=== PATIENT | male | born 1960 | race Caucasian/White ===

== ENCOUNTER 2021-03-27 21:08 | Observation (INO) | payer SELFPAY ==
[2021-03-27 21:01] VITALS: BP 155/90; PULSE 88; RESP 18; TEMP 36.7; O2SAT 94; BMI 38.0
--- NOTE | 2021-03-27 21:03 | CTR_ITS ---
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 C/O headache. TECHNIQUE: Imaging protocol: Computed tomography angiography of the head with contrast. Exam focused on the arteries. 3D rendering (Not supervised by radiologist): MIP and/or 3D reconstructed images were created by the technologist. Radiation optimization: All CT scans at this facility use at least one of these dose optimization techniques: automated exposure control; mA and/or kV adjustment per patient size (includes targeted exams where dose is matched to clinical indication); or iterative reconstruction. Contrast material: OMNI 350; Contrast volume: 95 ml; Contrast route: INTRAVENOUS (IV); COMPARISON: CT head wo con* [id number] 03/27/2021 9:16 PM RADIATION DOSE METRICS: Total DLP (mGy-cm): 2333.18 FINDINGS: ANTERIOR CIRCULATION: Right internal carotid artery: Unremarkable. Intracranial segment is patent with no significant stenosis. No aneurysm. Right middle cerebral artery: Unremarkable. No occlusion or significant stenosis. No aneurysm. Right anterior cerebral artery: Unremarkable. No occlusion or significant stenosis. No aneurysm. Left internal carotid artery: Unremarkable. Intracranial segment is patent with no significant stenosis. No aneurysm. Left middle cerebral artery: Unremarkable. No occlusion or significant stenosis. No aneurysm. Left anterior cerebral artery: Unremarkable. No occlusion or significant stenosis. No aneurysm. POSTERIOR CIRCULATION: Right vertebral artery: Unremarkable. No occlusion or significant stenosis. No aneurysm. Left vertebral artery: Unremarkable. No occlusion or significant stenosis. No aneurysm. Basilar artery: Unremarkable. No occlusion or significant stenosis. No aneurysm. Right posterior cerebral artery: Unremarkable. No occlusion or significant stenosis. No aneurysm. Left posterior cerebral artery: Unremarkable. No occlusion or significant stenosis. No aneurysm. Brain: No definite mass, mass effect, or midline shift. Cerebral ventricles: No ventriculomegaly. Bones/joints: Unremarkable. No acute fracture. Soft tissues: Unremarkable. Paranasal sinuses: Surgical antrostomy changes of the medial maxillary sinus mosquera. Mucosal thickening of maxillary sinuses and ethmoid air cells bilaterally. IMPRESSION: Unremarkable CT angiogram head. No intracranial arterial abnormality identified. 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 C/O headache. TECHNIQUE: Imaging protocol: Computed tomography angiography of the neck with contrast. 3D rendering (Not supervised by radiologist): MIP and/or 3D reconstructed images were created by the technologist. Radiation optimization: All CT scans at this facility use at least one of these dose optimization techniques: automated exposure control; mA and/or kV adjustment per patient size (includes targeted exams where dose is matched to clinical indication); or iterative reconstruction. Contrast material: OMNI 350; Contrast volume: 95 ml; Contrast route: INTRAVENOUS (IV); COMPARISON: CT head wo con* [id number] 03/27/2021 9:16 PM RADIATION DOSE METRICS: Total DLP (mGy-cm): 2333.18 FINDINGS: Right common carotid artery: No stenosis. No dissection or occlusion. Right internal carotid artery: Minimal calcified plaque volume in the proximal right ICA. No stenosis. No dissection. Right external carotid artery: No occlusion or stenosis of the origin. Left common carotid artery: No stenosis. No dissection or occlusion. Left internal carotid artery: No stenosis of the extracranial segment. No dissection or occlusion. Left external carotid artery: No occlusion or stenosis of the origin. Right vertebral artery: No stenosis. No dissection or occlusion. Left vertebral artery: No stenosis. No dissection or occlusion. Soft tissues: Normal. No significant soft tissue swelling. Bones/joints: No acute fracture. The cervical spine demonstrates moderate degenerative changes at multiple levels. CT/CT angio headneck* [id number] IMPRESSION: 1. Unremarkable CT angiogram neck. No vascular occlusion. 2. No stenosis in the carotid arteries. REFERENCES: NASCET CRITERIA. The degree of internal carotid artery stenosis is based on NASCET criteria. Normal is no stenosis. Mild is less than 50% stenosis. Moderate is 50-69% stenosis. Severe is 70% to 99% stenosis. Total occlusion is no detectable patent lumen. Radiation Dose CTDIVOL = (mGy): DLP = 2333.18~2333.18 (mGy-cm)
--- NOTE | 2021-03-27 21:03 | XRR_ITS ---
PROCEDURE INFORMATION: Exam: XR Chest Exam date and time: 03/27/2021 9:03 PM Age: 60 years old Clinical indication: Other: Syncope; Additional info: Dyspnea TECHNIQUE: Imaging protocol: XR of the chest. Views: 1 view. COMPARISON: No relevant prior studies available. FINDINGS: Lungs: Unremarkable. No consolidation. Pleural spaces: Unremarkable. No pleural effusion. No pneumothorax. Heart/Mediastinum: Unremarkable. No cardiomegaly. Bones/joints: Unremarkable. XR/XR chest 1V portable [id number] IMPRESSION: No acute findings. Radiation Dose CTDIVOL = (mGy): DLP = (mGy-cm)
--- NOTE | 2021-03-27 21:03 | CTR_ITS ---
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 C/O headache. ; Additional info: Syncope TECHNIQUE: Imaging protocol: Computed tomography of the head without contrast. Radiation optimization: All CT scans at this facility use at least one of these dose optimization techniques: automated exposure control; mA and/or kV adjustment per patient size (includes targeted exams where dose is matched to clinical indication); or iterative reconstruction. COMPARISON: No relevant prior studies available. RADIATION DOSE METRICS: Total DLP (mGy-cm): 966.51 FINDINGS: Brain: Normal. No hemorrhage. Unremarkable white matter. No mass effect. Cerebral ventricles: No ventriculomegaly. Paranasal sinuses: Medial maxillary sinus wall antrostomy surgical changes bilaterally. Maxillary sinus mucosal thickening. Ethmoid air cell mucosal thickening. Mastoid air cells: Visualized mastoid air cells are well aerated. Bones/joints: Unremarkable. No acute fracture. Soft tissues: Unremarkable. CT/CT head wo con* [id number] IMPRESSION: Negative for acute intracranial abnormality. Unremarkable brain. Radiation Dose CTDIVOL = (mGy): DLP = 966.51 (mGy-cm)
--- NOTE | 2021-03-27 21:03 | ECG_ITS ---
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 Measurements Intervals [place] Rate: 92 P: 57 CT: 170 QRS: 35 QRSD: 90 T: 24 QT: 324 QTc: 401 Interpretive Statements SINUS RHYTHM No previous ECG available for comparison Electronically Signed On 03-28-2021 21:30:17 CDT by Gideon Mixon M.D. [id number]
[2021-03-27 21:19] LABS: Basophils # 0.1 10^3/uL (0.0-0.1); Basophils % 0.8 %; Eosinophils # 0.3 10^3/uL (0.0-0.8); Eosinophils % 3.6 %; Hematocrit 45.8 % (42.0-52.0); Hemoglobin 15.4 g/dL (11.7-16.6); Lymphocytes # 3.4 10^3/uL (0.8-4.8); Mean Corpuscular HGB Conc 33.6 g/dL (30.0-36.0); Mean Corpuscular Hemoglobin 27.5 pg (28.0-34.0); Mean Corpuscular Volume 81.8 fl (80-94); Mean Platelet Volume 9.9 fL (7.4-10.4); Monocytes # 0.9 10^3/uL (0.2-0.9); Monocytes % 11.7 %; Neutrophils # 3.03 10^3/uL (1.8-7.7); Neutrophils % 39.4 %; Nucleated Red Blood Cells % 0 %; Platelet Count 226 10^3/cmm (130-400); Red Cell Distribution Width 12.8 % (12.1-15.1); White Blood Count 7.7 10^3/uL (4.0-10.0)
[2021-03-27] MEDS: sodium chloride 0.9% 1,000 ML 999 ML IV (21:19)
[2021-03-27 21:29] LABS: Troponin(5th) Baseline 9 ng/L (0-15)
[2021-03-27 21:31] LABS: Alanine Aminotransferase 40 U/L (0-41); Albumin Level 4.5 g/dL (3.5-5.2); Alkaline Phosphatase 111 IU/L (40-130); Anion Gap 19.1 (5-19); Aspartate Amino Transferase 20 U/L (0-40); Blood Urea Nitrogen 17 mg/dL (6-20); Calcium 9.9 mg/dL (8.5-10.5); Carbon Dioxide 22 mmol/L (22-29); Chloride 104 mmol/L (98-107); Globulin 2.6 g/dL (1.3-4.6); Glomerular Filtration Rate 99.3 mL/min (90-130); Glucose 83 mg/dL (65-115); Lipase 39 U/L (13-60); Osmolality Calculated 293 mOsm/kg (285-295); Potassium 4.1 mmol/L (3.5-5.1); Sodium 141 mmol/L (136-145); Total Bilirubin 0.4 mg/dL (0.15-1.2); Total Protein 7.1 g/dL (6.6-8.7)
[2021-03-27 22:05] VITALS: BP 152/75; PULSE 78; RESP 18; O2SAT 98
--- NOTE | 2021-03-27 22:26 | W.ED.GENADLT ---
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 This episode happened at half time and witnessed by people attending the game. Shortly after, patient had R sided neck pain and R arm pain. He was diaphoretic but could not recall what happened. By the time EMS arrived, the patient was back to baseline. On arrival, the patient denies any chest pain, SOB, palpitations, focal neurological weakness in the arms or legs. Patient could not recall exactly what happened, but denied any post-ictal confusion, bowel or bladder incontinence after the incident. Patient denies any prior episode of syncope. Denies any chest pain, shortness, palpitation, abdominal pain or back pain prior to the episode of syncope. No recent exertional chest pain or shortness of breath. Denies vertigo or disequilibrium. The episode of syncope was not preceded by any prodromes including nausea, pallor, or diaphoresis. No symptoms of diarrhea, hematuria, dysuria, melena or hematochezia. No prior documented hx of anemia requiring blood transfusions, VTE, or aortic aneurysm. Onset: 30 minutes ago Duration: x 1 episode Location: home Severity: moderate Review of Systems Narrative: Constitutional: No fever, no chills. +fatigue/sweating HEENT: No vision changes, +R sided neck pain CV: No chest pain, no palpitations PULM: No productive cough, no dyspnea. GI: No abdominal pain, no N/V/D. : No Dysuria MSKEL: +R arm pain SKIN: No new rashes, no lesions. NEURO: No headache, no focal weakness. +R arm pain HEME: No visible bruises PSYCH: Normal mood PFSH ED PFSH: Medical History (Updated 03/28/21 @ 00:16 by Danette Villa MD) Hyperlipidemia Hypertension Physical Exam Narrative: EXAM NARRATIVE: Head: Atraumatic Eyes: PERRL, conjunctiva without injection, eyes tracking ENT: Mucous membrane moist NECK: Supple without lymphadenopathy, no nuchal rigidity LUNGS: LCTAB CV: RRR ABDOMEN: Soft, nontender in all quadrants, no guarding or rebound tenderness, no CVA or flank tenderness bilaterally EXTREMITY: Normal ROM of the extremities intact SKIN: No rash or erythema NEURO: Mental status: A/Ox3 CN II-XII tested and intact. Sensation intact to sharp/dull differentiation in all extremities. Motor: Normal tone and bulk. No abnormal movements appreciated. No pronator drift. Strength tested and 5/5 in bilateral wrist flexion/extension, elbow flexion/extension, shoulder abduction, straight leg raise, knee flexion/extension, ankle dorsiflexion/plantarflexion. Patient ambulates with a steady gait. Coordination: Finger to nose and heel to weldon testing intact bilaterally. PSYCH: Cooperative mood and affect Course Vital Signs: Vital signs: Vital Signs Temperature 98.2 F 03/28/21 05:33 Pulse Rate 77 03/28/21 12:00 Respiratory Rate 14 03/28/21 12:00 Blood Pressure 131/84 03/28/21 12:00 Pulse Oximetry 97 03/28/21 12:00 MDM - General Adult MDM Narrative: Medical decision making narrative: [60]yo patient w/ hx of HTN presenting to the ED with syncope/diaphoresis/neck pain & R arm numbness/dyspnea. -chest pain, -SOB, -palpitations. Currently symptom free. S/p. HDS. Neurologically intact. Given history, exam and workup, presentation not consistent with seizures given short time course, no postictal state, no seizure activity. Low suspicion for acute neurologic catastrophes to include ICH given lack of trauma, risk factors for bleeding diathesis. Low suspicion for vascular catastrophes to include PE, thoracic aortic dissection, AAA rupture. Presentation not consistent with acute life threatening arrhythmia, structural heart disease, electrical conduction abnormalities, or ACS. Workup: CBC, BMP, Troponin, BNP, ECG, CXR for aspiration, CT head, CTA head/neck Intervention: IVF, PO challenge, and serial reassessment EKG: No e/o STEMI. No evidence of Brugada?s sign, delta wave, epsilon wave, significantly prolonged QTc, or malignant arrhythmia. Offered Admission for structural evaluation. Patient agreed [10:29] On reassessment, patient continues to HDS. No acute complaints currently. No syncopal episode in the ER. No arrhythmia noted on the phototypesetting equipment monitor. Patient has been able to ambulate in the ED without issues. No suspicion of neurogenic syncope at this time. Disposition: Admit to medicine, telemetry bed for cardiac monitoring and cardiology review. Lab Data: Labs: Lab Results 03/27/21 03/27/21 03/27/21 20:40 20:40 20:40 WBC 7.7 10^3/uL 10^3/ uL (4.0-10.0) RBC 5.60 10^6/uL H 10 ^6/uL (4.1-5.3) Hgb 15.4 g/dL g/dL (11.7-16.6) Hct 45.8 % % (42.0-52.0) MCV 81.8 fl fl (80-94) MCH 27.5 pg L pg (28.0-34.0) MCHC 33.6 g/dL g/dL (30.0-36.0) RDW 12.8 % % (12.1-15.1) Plt Count 226 10^3/cmm 10^3 /cmm (130-400) MPV 9.9 fL fL (7.4-10.4) Neut % (Auto) 39.4 % % Lymph % (Auto) 44.0 % % [place] % (Auto) 11.7 % % Eos % (Auto) 3.6 % % Baso % (Auto) 0.8 % % Neut # (Auto) 3.03 10^3/uL 10^3 /uL (1.8-7.7) Lymph # (Auto) 3.4 10^3/uL 10^3/ uL (0.8-4.8) [place] # (Auto) 0.9 10^3/uL 10^3/ uL (0.2-0.9) Eos # (Auto) 0.3 10^3/uL 10^3/ uL (0.0-0.8) Baso # (Auto) 0.1 10^3/uL 10^3/ uL (0.0-0.1) Nucleated RBC % (a uto) 0 % % Nucleated RBCs # 0.0 /100WBC /100W BC Sodium 141 mmol/L mmol/L (136-145) Potassium 4.1 mmol/L mmol/L (3.5-5.1) Chloride 104 mmol/L mmol/L (98-107) Carbon Dioxide 22 mmol/L mmol/L (22-29) Anion Gap 19.1 H (5-19) BUN 17 mg/dL mg/dL (6-20) Creatinine 0.8 mg/dL mg/dL (0.7-1.2) GFR Calculation 99.3 mL/min mL/mi n (90-130) Glucose 83 mg/dL mg/dL (65-115) Calculated Osmolal ity 293 mOsm/kg mOsm/ kg (285-295) Calcium 9.9 mg/dL mg/dL (8.5-10.5) Total Bilirubin 0.4 mg/dL mg/dL (0.15-1.2) AST 20 U/L U/L (0-40) ALT 40 U/L U/L (0-41) Alkaline Phosphata se 111 IU/L IU/L (40-130) Creatine Kinase Troponin T Baselin e 9 ng/L ng/L (0-15) Troponin T 120 Min [place] Troponin T Total Protein 7.1 g/dL g/dL (6.6-8.7) Albumin 4.5 g/dL g/dL (3.5-5.2) Globulin 2.6 g/dL g/dL (1.3-4.6) Lipase 39 U/L U/L (13-60) TSH 03/27/21 03/27/21 22:52 22:52 WBC RBC Hgb Hct MCV MCH MCHC RDW Plt Count MPV Neut % (Auto) Lymph % (Auto) [place] % (Auto) Eos % (Auto) Baso % (Auto) Neut # (Auto) Lymph # (Auto) [place] # (Auto) Eos # (Auto) Baso # (Auto) Nucleated RBC % (a uto) Nucleated RBCs # Sodium Potassium Chloride Carbon Dioxide Anion Gap BUN Creatinine GFR Calculation Glucose Calculated Osmolal ity Calcium Total Bilirubin AST ALT Alkaline Phosphata se Creatine Kinase 125 U/L U/L (39-308) Troponin T Baselin e Troponin T 120 Min [place] 7.92 ng/L ng/L (0-15) Delta Troponin T -1.08 ABS# L ABS# (0-10) Total Protein Albumin Globulin Lipase TSH 1.96 uIU/mL uIU/m L (0.27-4.20) Imaging Data^: Other Imaging: Radiologist's impression: [address] [id number] Scan ReportSigned Patient: Mic baldwinumang #: [id number]: 1960Acct#:[id number]/Sex: 60 / MADM Date: 03/27/21Loc: ERRoom/Bed:Attending Dr: Ordering Provider/Ordering MD: Chanel Kunz MD Date of Service: 03/27/21 Procedure(s): CT angio headneck* [id number] Accession Number(s): [id number] Report Number: [id number] PROCEDURE INFORMATION: Exam: CT Angiography Head With Contrast, Arteriography Exam date and time: 03/27/2021 9:03 PM Age: 60 years old Clinical indication: Syncope and collapse; 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 C/O headache. TECHNIQUE: Imaging protocol: Computed tomography angiography of the head with contrast. Exam focused on the arteries. 3D rendering (Not supervised by radiologist): MIP and/or 3D reconstructed images were created by the technologist. Radiation optimization: All CT scans at this facility use at least one of these dose optimization techniques: automated exposure control; mA and/or kV adjustment per patient size (includes targeted exams where dose is matched to clinical indication); or iterative reconstruction. Contrast material: OMNI 350; Contrast volume: 95 ml; Contrast route: INTRAVENOUS (IV); COMPARISON: CT head wo con* [id number] 03/27/2021 9:16 PM RADIATION DOSE METRICS: Total DLP (mGy-cm): 2333.18 FINDINGS: ANTERIOR CIRCULATION: Right internal carotid artery: Unremarkable. Intracranial segment is patent with no significant stenosis. No aneurysm. Right middle cerebral artery: Unremarkable. No occlusion or significant stenosis. No aneurysm. Right anterior cerebral artery: Unremarkable. No occlusion or significant stenosis. No aneurysm. Left internal carotid artery: Unremarkable. Intracranial segment is patent with no significant stenosis. No aneurysm. Left middle cerebral artery: Unremarkable. No occlusion or significant stenosis. No aneurysm. Left anterior cerebral artery: Unremarkable. No occlusion or significant stenosis. No aneurysm. POSTERIOR CIRCULATION: Right vertebral artery: Unremarkable. No occlusion or significant stenosis. No aneurysm. Left vertebral artery: Unremarkable. No occlusion or significant stenosis. No aneurysm. Basilar artery: Unremarkable. No occlusion or significant stenosis. No aneurysm. Right posterior cerebral artery: Unremarkable. No occlusion or significant stenosis. No aneurysm. Left posterior cerebral artery: Unremarkable. No occlusion or significant stenosis. No aneurysm. Brain: No definite mass, mass effect, or midline shift. Cerebral ventricles: No ventriculomegaly. Bones/joints: Unremarkable. No acute fracture. Soft tissues: Unremarkable. Paranasal sinuses: Surgical antrostomy changes of the medial maxillary sinus mosquera. Mucosal thickening of maxillary sinuses and ethmoid air cells bilaterally. IMPRESSION: Unremarkable CT angiogram head. No intracranial arterial abnormality identified. 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 C/O headache. TECHNIQUE: Imaging protocol: Computed tomography angiography of the neck with contrast. 3D rendering (Not supervised by radiologist): MIP and/or 3D reconstructed images were created by the technologist. Radiation optimization: All CT scans at this facility use at least one of these dose optimization techniques: automated exposure control; mA and/or kV adjustment per patient size (includes targeted exams where dose is matched to clinical indication); or iterative reconstruction. Contrast material: OMNI 350; Contrast volume: 95 ml; Contrast route: INTRAVENOUS (IV); COMPARISON: CT head wo con* [id number] 03/27/2021 9:16 PM RADIATION DOSE METRICS: Total DLP (mGy-cm): 2333.18 FINDINGS: Right common carotid artery: No stenosis. No dissection or occlusion. Right internal carotid artery: Minimal calcified plaque volume in the proximal right ICA. No stenosis. No dissection. Right external carotid artery: No occlusion or stenosis of the origin. Left common carotid artery: No stenosis. No dissection or occlusion. Left internal carotid artery: No stenosis of the extracranial segment. No dissection or occlusion. Left external carotid artery: No occlusion or stenosis of the origin. Right vertebral artery: No stenosis. No dissection or occlusion. Left vertebral artery: No stenosis. No dissection or occlusion. Soft tissues: Normal. No significant soft tissue swelling. Bones/joints: No acute fracture. The cervical spine demonstrates moderate degenerative changes at multiple levels. CT/CT angio headneck* [id number] IMPRESSION: 1. Unremarkable CT angiogram neck. No vascular occlusion. 2. No stenosis in the carotid arteries. REFERENCES: NASCET CRITERIA. The degree of internal carotid artery stenosis is based on NASCET criteria. Normal is no stenosis. Mild is less than 50% stenosis. Moderate is 50-69% stenosis. Severe is 70% to 99% stenosis. Total occlusion is no detectable patent lumen. Radiation Dose CTDIVOL = (mGy): DLP = 2333.18~2333.18 (mGy-cm) Dictated By:Bety Ruiz By:Bety Ruiz Date/Time:03/27/212146DD/ 02 [employer] [id number] Scan ReportSigned Patient: Germain baldwin #: [id number]: 1960Acct#:[id number]/Sex: 60 / MADM Date: 03/27/21Loc: ERRoom/Bed:Attending Dr: Ordering Provider/Ordering MD: Chanel Kunz MD Date of Service: 03/27/21 Procedure(s): CT head wo con* [id number] Accession Number(s): [id number] Report Number: [id number] PROCEDURE INFORMATION: Exam: CT Head Without Contrast Exam date and time: 03/27/2021 9:03 PM Age: 60 years old Clinical indication: Pain; Dizziness; 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 C/O headache. ; Additional info: Syncope TECHNIQUE: Imaging protocol: Computed tomography of the head without contrast. Radiation optimization: All CT scans at this facility use at least one of these dose optimization techniques: automated exposure control; mA and/or kV adjustment per patient size (includes targeted exams where dose is matched to clinical indication); or iterative reconstruction. COMPARISON: No relevant prior studies available. RADIATION DOSE METRICS: Total DLP (mGy-cm): 966.51 FINDINGS: Brain: Normal. No hemorrhage. Unremarkable white matter. No mass effect. Cerebral ventricles: No ventriculomegaly. Paranasal sinuses: Medial maxillary sinus wall antrostomy surgical changes bilaterally. Maxillary sinus mucosal thickening. Ethmoid air cell mucosal thickening. Mastoid air cells: Visualized mastoid air cells are well aerated. Bones/joints: Unremarkable. No acute fracture. Soft tissues: Unremarkable. CT/CT head wo con* [id number] IMPRESSION: Negative for acute intracranial abnormality. Unremarkable brain. Radiation Dose CTDIVOL = (mGy): DLP = 966.51 (mGy-cm) Dictated By:Bety Ruiz By:Bety Ruiz Date/Time:03/27/21/ [address] [id number] ReportSigned Patient: Germain baldwin #: [id number]: 1960Acct#:[id number]/Sex: 60 / MADM Date: 03/27/21Loc: ERRoom/Bed:Attending Dr: Ordering Provider/Ordering MD: Chanel Kunz MD Date of Service: 03/27/21 Procedure(s): XR chest 1V portable [id number] Accession Number(s): [id number] Report Number: [id number] PROCEDURE INFORMATION: Exam: XR Chest Exam date and time: 03/27/2021 9:03 PM Age: 60 years old Clinical indication: Other: Syncope; Additional info: Dyspnea TECHNIQUE: Imaging protocol: XR of the chest. Views: 1 view. COMPARISON: No relevant prior studies available. FINDINGS: Lungs: Unremarkable. No consolidation. Pleural spaces: Unremarkable. No pleural effusion. No pneumothorax. Heart/Mediastinum: Unremarkable. No cardiomegaly. Bones/joints: Unremarkable. XR/XR chest 1V portable [id number] IMPRESSION: No acute findings. Radiation Dose CTDIVOL = (mGy): DLP = (mGy-cm) Dictated By:Bety Ruiz By:Bety Ruiz Date/Time:03/27/21/ 02 Discharge Plan Discharge Patient Disposition: Admitted As Inpatient Admit Provider: Danette Villa Clinical Impression: Syncope and collapse Condition: Stable Discharge Diet: Cardiac Discharge Activity: Resume usual activity Coding Level of Care Code ED Computer Operations Technician for Chg Mary
[2021-03-27 22:51] VITALS: BP 143/78; PULSE 78; RESP 20; O2SAT 98
--- NOTE | 2021-03-27 23:03 | ECG_ITS ---
[facility] Test Date: 2021-03-28 Pat Name: Navneet Mayes Department: Room: 106 Gender: Male Web Analytics Specialist: : 1960 Requested By: Chanel Kunz Order Number: [id number] Darlyn MD: Gideon Mixon M.D. Measurements Intervals [place] Rate: 78 P: 62 SC: 179 QRS: 42 QRSD: 91 T: 24 QT: 357 QTc: 409 Interpretive Statements SINUS RHYTHM NONSPECIFIC T-WAVE ABNORMALITY Compared to ECG 03/27/2021 20:56:55 T-wave abnormality now present Electronically Signed On 03-28-2021 21:40:05 CDT by Gideon Mixon M.D. [email or web address]
[2021-03-27 23:22] LABS: Troponin 5 2HR 7.92 ng/L (0-15)
[2021-03-27 23:23] LABS: Troponin 5 2HR Delta -1.08 ABS# (0-10)
--- NOTE | 2021-03-27 23:30 | PC.NURSE ---
Admit Note Patient admitted to [facility] from ED via wheelchair. Covering service notified. 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 Orders reviewed & will continue to monitor. Patient and/or telemarketing representative oriented to environment, equipment, and informed of the following as found in the admission booklet: patient rights & responsibilities, visitor policy, hand and respiratory hygiene practice. Other education includes: []. Patient and/or telemarketing representative [ResponseToTeaching].
--- NOTE | 2021-03-27 23:30 | PC.NURSE ---
Admit Note Patient admitted to [facility] from ED via wheelchair. Covering service notified. Patient presents with syncopal episode. Dr Williamson in to see patient. Orders reviewed & will continue to monitor. Patient and/or unit support representative oriented to environment, equipment, and informed of the following as found in the admission booklet: patient rights & responsibilities, visitor policy, hand and respiratory hygiene practice. Other education includes: fluids, telemetry and other monitoring. Patient verbalized complete understanding. Patient is ambulatory and denies any pain or other symptoms. No distress observed.
[2021-03-27 23:53] VITALS: BP 151/84; PULSE 81; RESP 23; TEMP 36.6; O2SAT 95
[2021-03-27 23:55] VITALS: PULSE 83
[2021-03-28] VITALS (8 sets, daily range): BP systolic 113–143; BP diastolic 72–84; PULSE 72–91; RESP 14–17; TEMP 36.8; O2SAT 95–97
--- NOTE | 2021-03-28 00:11 | PM.HP ---
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 Patient does not recall most of the events. States he may have felt a little bit dizzy towards the last play of the game. Denies any chest pain dyspnea palpitations prior to this event. Denies any past history of syncope. He became alert awake oriented in the ambulance and feels in his baseline health since then except for some fatigue. EKG did not show any acute ST-T wave changes. Baseline troponin is within normal range. 2-hour and 6-hour troponins are pending at this time. Denies any past history of diabetes mellitus or insulin use. No recent history of cough dyspnea or expectoration. Vital signs within normal limits upon arrival. No focal neurological motor deficits noted. CT head and CTA of head and neck without acute events noted. Review of Systems General: Reports: 10 or more systems reviewed and unremarkable except in HPI and below Const: Denies: fever(s), chills or body aches Eyes: Denies: change in vision, blurry vision or photophobia ENMT: Reports: hoarseness; Denies: throat pain, enlarged tonsils, odynophagia or nasal congestion Card: Denies: chest pain, palpitations, irregular heart rhythm, edema, swelling of feet/ankles, lightheadedness, pre-syncope, dyspnea on exertion or orthopnea Resp: Denies: dyspnea, productive cough, non-productive cough, wheezing, stridor, pain on inspiration, change in phlegm color, hemoptysis or chest congestion GI: Denies: abdominal pain, nausea, vomiting, hematemesis, coffee ground emesis, dysphagia, heartburn, diarrhea, constipation, GI cramping, change in stool character, hematochezia or melena : Denies: flank pain, dysuria, urinary frequency, urinary urgency, urinary hesitancy or hematuria Musc: Denies: neck pain, back pain, extremity pain, joint swelling, joint warmth or deformity Neuro: Denies: headache(s), numbness in extremities, weakness in extremities, sensory changes, difficulty walking, frequent falls, dizziness, vertigo, behavioral changes, Slurred speech present or seizure-like activity Psych: Denies: anxiety, depression, suicidal ideation or homicidal ideation Endo: Denies: polyuria, polydipsia, tired all the time, cold intolerance or hot flashes Chai/Lymph: Denies: easy bruising or easy bleeding Medications/Allergies Home Medications Medication Instructions Recorded Confirmed Last Taken Type amlodipine 5 mg PO DAILY 03/27/21 03/28/21 03/27/21 08:00 History aripiprazole 5 mg PO 0800,2100 03/27/21 03/28/21 03/27/21 08:00 History atorvastatin [Lipitor] 20 mg PO DAILY 03/27/21 03/28/21 03/27/21 08:00 History esomeprazole magnesium 20 mg PO DAILY 03/27/21 03/27/21 03/27/21 08:00 History pramipexole 2 mg PO DAILY 03/27/21 03/28/21 03/26/21 21:00 History prazosin 2 mg PO QPM 03/27/21 03/28/21 03/26/21 21:00 History quetiapine 100 mg PO BEDTIME 03/27/21 03/28/21 03/26/21 21:00 History sertraline 200 mg PO DAILY 03/27/21 03/27/21 03/27/21 08:00 History thiamine HCl (vitamin B1) 100 mg PO DAILY 03/27/21 03/27/21 03/27/21 08:00 History Allergies Allergy/AdvReac Type Severity Reaction Status Date / Time No Known Allergies Allergy Verified 03/27/21 21:01 PFSH Acute PFSH: Medical History (Updated 03/28/21 @ 00:16 by Danette Villa MD) Hyperlipidemia Hypertension Vitals/I&O/Wt Last Vital Signs Temp 97.9 F 03/27/21 23:53 Pulse 83 03/27/21 23:55 Resp 23 H 03/27/21 23:53 BP 151/84 03/27/21 23:53 Pulse Ox 95 03/27/21 23:53 03/27/21 03/27/21 03/28/21 14:59 22:59 06:59 Intake Total 1000 / 1000 Balance 1000 / 1000 Weight last 48 hrs Weight 113.398 kg Physical Exam Narrative: EXAM NARRATIVE: General: No acute distress, AO x3 HEENT: PERRLA, pupils bilaterally equal and reactive, pallors not present Chest: Normal vesicular breath sounds, no added sounds, equal good air entry bilaterally CVS: S1-S2 regular, no murmurs, no tachycardia, no gallops, no rubs Abdomen: Soft, nontender, no organomegaly, bowel sounds present Neuro: No focal deficits, no facial deformity, AO x3, power 5/5 in all limbs Extremities: no swelling, edema, cyanosis or clubbing Data : 03/27/21 20:40 03/27/21 20:40 Attestation for Other Data: I personally reviewed and interpreted the following: Other data: Laboratory Results WBC 7.7 10^3/uL (4.0-10.0) 03/27/21 20:40 RBC 5.60 10^6/uL (4.1-5.3) H 03/27/21 20:40 Hgb 15.4 g/dL (11.7-16.6) 03/27/21 20:40 Hct 45.8 % (42.0-52.0) 03/27/21 20:40 MCV 81.8 fl (80-94) 03/27/21 20:40 MCH 27.5 pg (28.0-34.0) L 03/27/21 20:40 MCHC 33.6 g/dL (30.0-36.0) 03/27/21 20:40 RDW 12.8 % (12.1-15.1) 03/27/21 20:40 Plt Count 226 10^3/cmm (130-400) 03/27/21 20:40 MPV 9.9 fL (7.4-10.4) 03/27/21 20:40 Neut % (Auto) 39.4 % 03/27/21 20:40 Lymph % (Auto) 44.0 % 03/27/21 20:40 [place] % (Auto) 11.7 % 03/27/21 20:40 Eos % (Auto) 3.6 % 03/27/21 20:40 Baso % (Auto) 0.8 % 03/27/21 20:40 Neut # (Auto) 3.03 10^3/uL (1.8-7.7) 03/27/21 20:40 Lymph # (Auto) 3.4 10^3/uL (0.8-4.8) 03/27/21 20:40 [place] # (Auto) 0.9 10^3/uL (0.2-0.9) 03/27/21 20:40 Eos # (Auto) 0.3 10^3/uL (0.0-0.8) 03/27/21 20:40 Baso # (Auto) 0.1 10^3/uL (0.0-0.1) 03/27/21 20:40 Nucleated RBC % (auto) 0 % 03/27/21 20:40 Nucleated RBCs # 0.0 /100WBC 03/27/21 20:40 Sodium 141 mmol/L (136-145) 03/27/21 20:40 Potassium 4.1 mmol/L (3.5-5.1) 03/27/21 20:40 Chloride 104 mmol/L (98-107) 03/27/21 20:40 Carbon Dioxide 22 mmol/L (22-29) 03/27/21 20:40 Anion Gap 19.1 (5-19) H 03/27/21 20:40 BUN 17 mg/dL (6-20) 03/27/21 20:40 Creatinine 0.8 mg/dL (0.7-1.2) 03/27/21 20:40 GFR Calculation 99.3 mL/min (90-130) 03/27/21 20:40 Glucose 83 mg/dL (65-115) 03/27/21 20:40 Calculated Osmolality 293 mOsm/kg (285-295) 03/27/21 20:40 Calcium 9.9 mg/dL (8.5-10.5) 03/27/21 20:40 Total Bilirubin 0.4 mg/dL (0.15-1.2) 03/27/21 20:40 AST 20 U/L (0-40) 03/27/21 20:40 ALT 40 U/L (0-41) 03/27/21 20:40 Alkaline Phosphatase 111 IU/L (40-130) 03/27/21 20:40 Creatine Kinase 125 U/L (39-308) 03/27/21 22:52 Troponin T Baseline 9 ng/L (0-15) 03/27/21 20:40 Troponin T 120 Minute 7.92 ng/L (0-15) 03/27/21 22:52 Delta Troponin T -1.08 ABS# (0-10) L 03/27/21 22:52 Total Protein 7.1 g/dL (6.6-8.7) 03/27/21 20:40 Albumin 4.5 g/dL (3.5-5.2) 03/27/21 20:40 Globulin 2.6 g/dL (1.3-4.6) 03/27/21 20:40 Lipase 39 U/L (13-60) 03/27/21 20:40 TSH 1.96 uIU/mL (0.27-4.20) 03/27/21 22:52 Impressions Chest X-Ray 03/27/21 21:03 IMPRESSION: No acute findings. Radiation Dose CTDIVOL = (mGy): DLP = (mGy-cm) Head CT 03/27/21 21:03 IMPRESSION: Negative for acute intracranial abnormality. Unremarkable brain. Radiation Dose CTDIVOL = (mGy): DLP = 966.51 (mGy-cm) Head/Neck CTA 03/27/21 21:03 IMPRESSION: 1. Unremarkable CT angiogram neck. No vascular occlusion. 2. No stenosis in the carotid arteries. REFERENCES: NASCET CRITERIA. The degree of internal carotid artery stenosis is based on NASCET criteria. Normal is no stenosis. Mild is less than 50% stenosis. Moderate is 50-69% stenosis. Severe is 70% to 99% stenosis. Total occlusion is no detectable patent lumen. Radiation Dose CTDIVOL = (mGy): DLP = 2333.18~2333.18 (mGy-cm) A&P Assessment and plan (1) Syncope and collapse: admit to [facility]SU in observation for evaluation of syncope telemetry monitoring for any arrhythmias CT head and CTA head/neck without occlusion 2d echocardiogram to evaluate for valvular abnormalities EKG without acute St-T wave changes, baseline trop 9, 2 hr 7, negative delta , unlikely ACS Syncopal episode may be related to dehydration vs vasovagal syncope Check CPK level to assess for rhabdomyolysis NS @ 75cc/hr Status: Acute Additional A&P Information Sleep apnea: CPAP HTN: continue home dose of amlodipine Attestations Medical Necessity Statement*: observation admission, anticipate less than 2 midnight admission for evaluation of syncope Coding Level of Care Code Acute Cushion Mat Maker for [facility] Fwd Diagnoses Syncope and collapse R54
[2021-03-28 00:14] LABS: Creatine Phosphokinase 125 U/L (39-308); Thyroid Stimulating Hormone 1.96 uIU/mL (0.27-4.20)
[2021-03-28] MEDS: sodium chloride 0.9% 1,000 ML 75 ML IV (00:54)
[2021-03-28] MEDS: quetiapine 100 mg Tablet PO (01:59)
--- NOTE | 2021-03-28 03:03 | ECG_ITS ---
[facility] Test Date: 2021-03-28 Pat Name: Navneet Mayes Department: Room: 106 Gender: Male Principal Accounts Clerk: : 1960 Requested By: Chanel Kunz Order Number: [id number] Darlyn MD: Gideon Mixon M.D. Measurements Intervals [place] Rate: 77 P: 60 DC: 170 QRS: 36 QRSD: 93 T: 28 QT: 377 QTc: 427 Interpretive Statements SINUS RHYTHM Compared to ECG 03/28/2021 00:01:00 T-wave abnormality no longer present Electronically Signed On 03-28-2021 21:39:56 CDT by Gideon Mixon M.D. [email or web address]
[2021-03-28 04:29] LABS: Troponin 5 6HR 8.93 ng/L (0-15)
[2021-03-28 04:33] LABS: Troponin 5 6HR Delta -0.07 ng/L (0-12)
--- NOTE | 2021-03-28 06:18 | PC.NURSE ---
Shift Note Frequent safety and comfort rounds continue. Orders and/or nursing care completed as indicated. Patient monitored for response to intervention and treatment(s). Education provided includes cardiac monitoring and echocardiogram. Patient verbalized complete understanding. Patient did not have any ectopy on telemetry throughout the night. Denies any pain or other needs. No distress observed. Will continue to monitor.
[2021-03-28 09:48] LABS: Chol HDL Ratio 5.18 mg/dL (1.0-5.00); Cholesterol 176 mg/dL (0-200); HDL Cholesterol 34 mg/dL (60-100); LDL Cholesterol Calculated 105 mg/dL (50-129); Triglycerides 186 mg/dL (0-150); VLDL Cholestrol Calculation 37 mg/dL (0-30)
[2021-03-28 09:52] LABS: Estmated Average Glucose 114; Hemoglobin A1C 5.6 % (4.0-6.0)
[2021-03-28] MEDS: atorvastatin 40 mg Tablet 20 MG PO (10:24)
[2021-03-28] MEDS: thiamine 100 mg Tablet PO (10:24)
[2021-03-28] MEDS: ARIPiprazole 10 mg Tablet 5 MG PO (10:25)
[2021-03-28] MEDS: amlodipine 5 mg Tablet PO (10:25)
[2021-03-28] MEDS: sertraline 100 mg Tablet 200 MG PO (10:25)
[2021-03-28] MEDS: pantoprazole DR 40 mg Tablet PO (10:25)
--- NOTE | 2021-03-28 11:28 | PM.DCS ---
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 Patient does not recall most of the events. States he may have felt a little bit dizzy towards the last play of the game. Denies any chest pain dyspnea palpitations prior to this event. Denies any past history of syncope. He became alert awake oriented in the ambulance and feels in his baseline health since then except for some fatigue. EKG did not show any acute ST-T wave changes. His troponin cycle remained negative. He was admitted under observation. CT imaging came back negative. Orthostatics were negative. Echocardiogram was done which was within normal limits. It is possible patient's symptoms on admission were most likely from dehydration. He has been discharged in hemodynamically stable condition with advised to follow-up with his primary care provider within next 1 week. His dose of amlodipine has been increased to 10 mg daily. He is advised to keep his hydration adequate. Physical Exam Narrative: EXAM NARRATIVE: General: No acute distress, AO x3 HEENT: PERRLA, pupils bilaterally equal and reactive, pallors not present Chest: Normal vesicular breath sounds, no added sounds, equal good air entry bilaterally CVS: S1-S2 regular, no murmurs, no tachycardia, no gallops, no rubs Abdomen: Soft, nontender, no organomegaly, bowel sounds present Neuro: No focal deficits, no facial deformity, AO x3, power 5/5 in all limbs Extremities: no swelling, edema, cyanosis or clubbing Discharge Data Data Completed and Pending: Completed Studies During Hospitalization Category Date Time Status CT angio headneck * [id number] Urge nt Cat Scan 03/27/21 21:[address] head wo con* [id number] Urgent Cat Scan 03/27/21 21:03 Completed XR chest 1V leandra ble [id number] Urgent Exams 03/27/21 21:03 Completed CV. echo complete * [id number] Routine Ultrasound 03/28/21 23:48 Completed Labs from last 24 hours 03/28/21 03/28/21 03/28/21 03:21 03:21 03:21 WBC RBC Hgb Hct MCV MCH MCHC RDW Plt Count MPV Neut % (Auto) Lymph % (Auto) [place] % (Auto) Eos % (Auto) Baso % (Auto) Neut # (Auto) Lymph # (Auto) [place] # (Auto) Eos # (Auto) Baso # (Auto) Nucleated RBC % (a uto) Nucleated RBCs # D-Dimer 0.30 Sodium Potassium Chloride Carbon Dioxide Anion Gap BUN Creatinine GFR Calculation Glucose Estimat Average Gl ucose 114 Hemoglobin A1c 5.6 Calculated Osmolal ity Calcium Total Bilirubin AST ALT Alkaline Phosphata se Creatine Kinase Troponin T Baselin e Troponin T 120 Min [place] Delta Troponin T Troponin T Hi Sens 6Hr Troponin T Hi Sens 6Hr Delta Total Protein Albumin Globulin Triglycerides 186 H Cholesterol 176 LDL Cholesterol, C alc 105 Total VLDL Cholest adina 37 H HDL Cholesterol 34 L Cholesterol/HDL Ra clarissa 5.18 H Lipase TSH 03/28/21 03/27/21 03/27/21 03:21 22:52 22:52 WBC RBC Hgb Hct MCV MCH MCHC RDW Plt Count MPV Neut % (Auto) Lymph % (Auto) [place] % (Auto) Eos % (Auto) Baso % (Auto) Neut # (Auto) Lymph # (Auto) [place] # (Auto) Eos # (Auto) Baso # (Auto) Nucleated RBC % (a uto) Nucleated RBCs # D-Dimer Sodium Potassium Chloride Carbon Dioxide Anion Gap BUN Creatinine GFR Calculation Glucose Estimat Average Gl ucose Hemoglobin A1c Calculated Osmolal ity Calcium Total Bilirubin AST ALT Alkaline Phosphata se Creatine Kinase 125 Troponin T Baselin e Troponin T 120 [place] 7.92 Delta Troponin T -1.08 L Troponin T Hi Sens 6Hr 8.93 Troponin T Hi Sens 6Hr Delta -0.07 L Total Protein Albumin Globulin Triglycerides Cholesterol LDL Cholesterol, C alc Total VLDL Cholest adina HDL Cholesterol Cholesterol/HDL Ra clarissa Lipase TSH 1.96 03/27/21 03/27/21 03/27/21 20:40 20:40 20:40 WBC 7.7 RBC 5.60 H Hgb 15.4 Hct 45.8 MCV 81.8 MCH 27.5 L MCHC 33.6 RDW 12.8 Plt Count 226 MPV 9.9 Neut % (Auto) 39.4 Lymph % (Auto) 44.0 [place] % (Auto) 11.7 Eos % (Auto) 3.6 Baso % (Auto) 0.8 Neut # (Auto) 3.03 Lymph # (Auto) 3.4 [place] # (Auto) 0.9 Eos # (Auto) 0.3 Baso # (Auto) 0.1 Nucleated RBC % (a uto) 0 Nucleated RBCs # 0.0 D-Dimer Sodium 141 Potassium 4.1 Chloride 104 Carbon Dioxide 22 Anion Gap 19.1 H BUN 17 Creatinine 0.8 GFR Calculation 99.3 Glucose 83 Estimat Average Gl ucose Hemoglobin A1c Calculated Osmolal ity 293 Calcium 9.9 Total Bilirubin 0.4 AST 20 ALT 40 Alkaline Phosphata se 111 Creatine Kinase Troponin T Baselin e 9 Troponin T 120 Min [place] Delta Troponin T Troponin T Hi Sens 6Hr Troponin T Hi Sens 6Hr Delta Total Protein 7.1 Albumin 4.5 Globulin 2.6 Triglycerides Cholesterol LDL Cholesterol, C alc Total VLDL Cholest adina HDL Cholesterol Cholesterol/HDL Ra clarissa Lipase 39 TSH Addt'l Data from Hospital Stay: Laboratory Results WBC 7.7 10^3/uL (4.0- 10.0) 03/27/21 20:40 RBC 5.60 10^6/uL (4.1 -5.3) H 03/27/21 20:40 Hgb 15.4 g/dL (11.7-1 6.6) 03/27/21 20:40 Hct 45.8 % (42.0-52.0 ) 03/27/21 20:40 MCV 81.8 fl (80-94) 03/27/21 20:40 MCH 27.5 pg (28.0-34. 0) L 03/27/21 20:40 MCHC 33.6 g/dL (30.0-3 6.0) 03/27/21 20:40 RDW 12.8 % (12.1-15.1 ) 03/27/21 20:40 Plt Count 226 10^3/cmm (130 -400) 03/27/21 20:40 MPV 9.9 fL (7.4-10.4) 03/27/21 20:40 Neut % (Auto) 39.4 % 03/27/21 20:40 Lymph % (Auto) 44.0 % 03/27/21 20:40 [place] % (Auto) 11.7 % 03/27/21 20:40 Eos % (Auto) 3.6 % 03/27/21 20:40 Baso % (Auto) 0.8 % 03/27/21 20:40 Neut # (Auto) 3.03 10^3/uL (1.8 -7.7) 03/27/21 20:40 Lymph # (Auto) 3.4 10^3/uL (0.8- 4.8) 03/27/21 20:40 [place] # (Auto) 0.9 10^3/uL (0.2- 0.9) 03/27/21 20:40 Eos # (Auto) 0.3 10^3/uL (0.0- 0.8) 03/27/21 20:40 Baso # (Auto) 0.1 10^3/uL (0.0- 0.1) 03/27/21 20:40 Nucleated RBC % (a uto) 0 % 03/27/21 20:40 Nucleated RBCs # 0.0 /100WBC 03/27/21 20:40 D-Dimer 0.30 ug/mIFEU (0- 0.59) 03/28/21 03:21 Sodium 141 mmol/L (136-1 45) 03/27/21 20:40 Potassium 4.1 mmol/L (3.5-5 .1) 03/27/21 20:40 Chloride 104 mmol/L (98-10 7) 03/27/21 20:40 Carbon Dioxide 22 mmol/L (22-29) 03/27/21 20:40 Anion Gap 19.1 (5-19) H 03/27/21 20:40 BUN 17 mg/dL (6-20) 03/27/21 20:40 Creatinine 0.8 mg/dL (0.7-1. 2) 03/27/21 20:40 GFR Calculation 99.3 mL/min (90-1 30) 03/27/21 20:40 Glucose 83 mg/dL (65-115) 03/27/21 20:40 Estimat Average Gl ucose 114 03/28/21 03:21 Hemoglobin A1c 5.6 % (4.0-6.0) 03/28/21 03:21 Calculated Osmolal ity 293 mOsm/kg (285- 295) 03/27/21 20:40 Calcium 9.9 mg/dL (8.5-10 .5) 03/27/21 20:40 Total Bilirubin 0.4 mg/dL (0.15-1 .2) 03/27/21 20:40 AST 20 U/L (0-40) 03/27/21 20:40 ALT 40 U/L (0-41) 03/27/21 20:40 Alkaline Phosphata se 111 IU/L (40-130) 03/27/21 20:40 Creatine Kinase 125 U/L (39-308) 03/27/21 22:52 Troponin T Baselin e 9 ng/L (0-15) 03/27/21 20:40 Troponin T 120 [place] 7.92 ng/L (0-15) 03/27/21 22:52 Delta Troponin T -1.08 ABS# (0-10) L 03/27/21 22:52 Troponin T Hi Sens 6Hr 8.93 ng/L (0-15) 03/28/21 03:21 Troponin T Hi Sens 6Hr Delta -0.07 ng/L (0-12) L 03/28/21 03:21 Total Protein 7.1 g/dL (6.6-8.7 ) 03/27/21 20:40 Albumin 4.5 g/dL (3.5-5.2 ) 03/27/21 20:40 Globulin 2.6 g/dL (1.3-4.6 ) 03/27/21 20:40 Triglycerides 186 mg/dL (0-150) H 03/28/21 03:21 Cholesterol 176 mg/dL (0-200) 03/28/21 03:21 LDL Cholesterol, C alc 105 mg/dL (50-129 ) 03/28/21 03:21 Total VLDL Cholest adina 37 mg/dL (0-30) H 03/28/21 03:21 HDL Cholesterol 34 mg/dL (60-100) L 03/28/21 03:21 Cholesterol/HDL Ra clarissa 5.18 mg/dL (1.0-5 .00) H 03/28/21 03:21 Lipase 39 U/L (13-60) 03/27/21 20:40 TSH 1.96 uIU/mL (0.27 -4.20) 03/27/21 22:52 Impressions Chest X-Ray 03/27/21 21:03 IMPRESSION: No acute findings. Radiation Dose CTDIVOL = (mGy): DLP = (mGy-cm) Head CT 03/27/21 21:03 IMPRESSION: Negative for acute intracranial abnormality. Unremarkable brain. Radiation Dose CTDIVOL = (mGy): DLP = 966.51 (mGy-cm) Head/Neck CTA 03/27/21 21:03 IMPRESSION: 1. Unremarkable CT angiogram neck. No vascular occlusion. 2. No stenosis in the carotid arteries. REFERENCES: NASCET CRITERIA. The degree of internal carotid artery stenosis is based on NASCET criteria. Normal is no stenosis. Mild is less than 50% stenosis. Moderate is 50-69% stenosis. Severe is 70% to 99% stenosis. Total occlusion is no detectable patent lumen. Radiation Dose CTDIVOL = (mGy): DLP = 2333.18~2333.18 (mGy-cm) Echocardiogram: CONCLUSIONS LV systolic function is normal with EF of 55-60% Grade 1 diastolic dysfunction Trace mitral regurgitation No comparison studies are available Gideon Mixon MD (Electronically Signed) Final Date: 28 March 2021 10:33 Vitals: Last Vital Signs Temp 98.2 F 03/28/21 05:33 Pulse 88 03/28/21 09:11 Resp 17 03/28/21 08:00 BP 142/74 03/28/21 09:11 Pulse Ox 95 03/28/21 08:20 Discharge Plan Discharge Patient Disposition: Home Condition: Stable Prescriptions: Continued pramipexole 1 mg Tablet 2 mg PO DAILY RF: 0 Lipitor 20 mg Tablet 20 mg PO DAILY RF: 0 sertraline 100 mg Tablet 200 mg PO DAILY RF: 0 thiamine HCl (vitamin B1) 100 mg Tablet 100 mg PO DAILY RF: 0 quetiapine 100 mg Tablet 100 mg PO BEDTIME RF: 0 prazosin 2 mg Capsule 2 mg PO QPM RF: 0 esomeprazole magnesium 20 mg Capsule,Delayed Release(Dr/Ec) 20 mg PO DAILY RF: 0 aripiprazole 5 mg Tablet 5 mg PO 0800,2100 RF: 0 Changed amlodipine 5 mg Tablet 10 mg PO DAILY Qty: 0 RF: 0 Discharge Orders: Discharge Order (Routine); Ordered 03/28/21 Ordered By: Cedric Magana Discharge Diet: Cardiac Discharge Activity: Resume usual activity Patient Instructions: Opioid Safety Activity Restrictions/Additional Instructions: Follow-up with a primary care provider within next 1 week. Maintain a blood pressure diary by checking blood pressure twice daily and follow-up with a primary care provider. Dose of amlodipine has been increased to 10 mg daily. Discharge Attestations Time Spent in Discharge Care*: greater than 30 min Specific Discharge Activities: educating patient, discussing with pcp/other providers, discussing with mental health case manager/social workers/dc planners, documenting/other paperwork and evaluating patient/reviewing data Status at Discharge: Cognitive status at discharge: cognitively intact, Behavioral status at discharge: cooperative, Functional status at discharge: independent ambulation Overall status at discharge: patient is back to baseline Quality Metrics Clinical Quality Measures During this hospital stay, did patient experience: None Coding Level of Care Code Acute Chg FW DC note Diagnoses Syncope and collapse R55
--- NOTE | 2021-03-28 12:40 | PC.NURSE ---
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
--- NOTE | 2021-03-28 23:48 | USCV_ITS ---
Navneet Mayes Age: 60 Gender: M : 1960 Exam Date: 03/28/2021 07:05 Ordering Phys: Danette Villa MD Technologist: Martha Fernández [place] [facility] [place]: Syncope BP: 113 / 72 HR: 78 Rhythm: Sinus Technical Quality: Suboptimal MEASUREMENTS (Male / Female) Normal Values 2D ECHO LV Diastolic Diameter PLAX 4.5 cm 4.2 - 5.9 / 3.9 - 5.3 cm LV Systolic Diameter PLAX 2.8 cm LV Chamber Size 4.4 cm IVS Diastolic Thickness 1.4 cm 0.6 - 1.0 / 0.6 - 0.9 cm IVS Systolic Thickness 1.6 cm LVPW Diastolic Thickness 0.9 cm 0.6 - 1.0 / 0.6 - 0.9 cm LVPW Systolic Thickness 1.2 cm RV Chamber Size 3.3 cm LVOT Diameter 2.1 cm LV Ejection Fraction 2D Teich 69.6 % LV Ejection Fraction MOD 2C 60.6 % LV Ejection Fraction 2C AL 64.0 % LA Diameter 2.8 cm LA Width 3.1 cm LA Height 5.7 cm RA Width 3.3 cm RA Height 4.7 cm Aorta at Sinotubular Diameter 3.2 cm M-MODE LV Diastolic Diameter MM 7.1 cm 4.2 - 5.9 / 3.9 - 5.3 cm LV Systolic Diameter MM 5.2 cm LV Ejection Fraction MM Teich 51.8 % IVS Diastolic Thickness MM 0.9 cm 0.6 - 1.0 / 0.6 - 0.9 cm IVS Systolic Thickness MM 0.9 cm LVPW Diastolic Thickness MM 1.6 cm 0.6 - 1.0 / 0.6 - 0.9 cm LVPW Systolic Thickness MM 1.5 cm RV Diastolic Diameter MM 1.1 cm Aortic Annulus Diameter 3.7 cm LA Ao Ratio MM 0.7 MV E Point Septal Separation 0.5 cm DOPPLER AV Peak Velocity 139.0 cm/s LVOT Peak Velocity 101.0 cm/s AV Area Cont Eq vti 2.4 cm squared AV Area Cont Eq pk 2.6 cm squared MV Area PHT 4.4 cm squared Mitral E to A Ratio 0.9 MV E' Velocity 46.0 cm/s Mitral E to MV E' Ratio 14.0 Mitral E to LV E' Lateral Ratio 15.3 Mitral E to LV E' Septal Ratio 13.2 TR Peak Velocity 197.0 cm/s TR Peak Gradient 15.5 mmHg TV Peak E Velocity 56.0 cm/s Right Atrial Pressure 3.0 mmHg Pulmonary Artery Systolic Pressu 18.5 mmHg PV Peak Velocity 69.0 cm/s RV Acceleration Time 0.1 s RV Ejection Time 0.3 s RV AcT/ET 0.2 FINDINGS Left Ventricle Normal left ventricular size. LV systolic function is normal with EF of 55-60%. No regional wall motion abnormalities. Grade 1 diastolic dysfunction Right Ventricle The right ventricle is normal in size and function. Right Atrium The right atrium is normal in size. Normal RA pressure Left Atrium The left atrium is normal in size. Mitral Valve Structurally normal mitral valve without significant stenosis or prolapse. There is trace mitral regurgitation. Aortic Valve Structurally normal aortic valve without significant sclerosis or stenosis. There is no aortic regurgitation. Tricuspid Valve Structurally normal tricuspid valve without significant stenosis or regurgitation. Insufficient TR jet to calculate RVSP Pulmonic Valve Structurally normal pulmonic valve without significant stenosis. There is no pulmonic regurgitation. Pericardium Normal pericardium without effusion. Aorta Normal ascending aorta dimension. CONCLUSIONS LV systolic function is normal with EF of 55-60% Grade 1 diastolic dysfunction Trace mitral regurgitation No comparison studies are available Gideon Mixon MD (Electronically Signed) Final Date: 28 March 2021 10:33 S
--- NOTE | 2021-04-01 09:51 | PC.SOCIAL ---
discharge follow up call made, spoke with patient. patient reports he is feeling great. he hasn't had anymore spells, denies chest pain, sob. patient has been recording daily b/p's and keeping a log for his pcp at follow up. patient is aware of amlodipine change from 5mg to 10mg daily. patient denies questions or concerns. nurse will make follow up appointment for patient.
== END 2021-03-28 12:45 | disposition home or self-care (01) ==
LOC: ER 22:51 → CSU 22:58
PROVIDERS: Admitting Provider Student in an Organized Health Care Education/Training Program; Emergency Provider Emergency Medicine; Visit Provider Student in an Organized Health Care Education/Training Program
DX: R55 Syncope and collapse (principal); I10 Essential (primary) hypertension; E78.5 Hyperlipidemia, unspecified
CPT/HCPCS: 36415; 70450; 70496; 70498; 71045; 80053; 80061; 82550; 83036; 83690; 84443; 84484; 85025; 85378; 93005; 93306; 94660; 96360; 96361; 99285; G0378; J7030; Q9967